=== PATIENT | female | born 1945 | race Caucasian/White ===

== ENCOUNTER → 2024-07-08 | Outpatient (CLI) | payer MEDICARE ==
[2024-07-08 12:05] LABS: Prothrombin Time 10.5 sec (10.0-12.5)
[2024-07-08 15:44] LABS: HCT 38.5 % (37.2-46.3); HGB 12.3 g/dL (12.0-15.0); MCH 29.9 pg (27.0-32.0); MCHC 31.9 g/dL (32.0-37.0); MCV 93.7 FL (80.0-97.0); Mean Platelet Volume 10.8 FL (9.5-12.2); NRBC Per 100 WBC 0 X 10*3/uL (0.00-0.01); Platelet Count 269 X 10*3/uL (140-440); RBC 4.11 X 10*6/uL (4.10-5.20); RDW 13.7 % (11.5-14.5); WBC 6.74 X 10*3/uL (4.50-10.00)
[2024-07-08 16:34] LABS: Blood Urea Nitrogen 29.5 mg/dL (9.0-27.0); Glucose 160 mg/dL (70-110)
[2024-07-08 16:35] LABS: ALT 24 U/L (8-44); AST 21 U/L (13-35); Albumin 4.3 g/dL (3.8-4.9); Albumin/Globulin Ratio 1.72 Ratio (1.60-3.17); Alkaline Phosphatase 61 U/L (41-126); Calcium 9.5 mg/dL (8.7-10.3); Chloride 105 mmol/L (96-109); Globulin 2.5 g/dL (1.6-3.3); Potassium 3.8 mmol/L (3.5-5.5); Sodium 139 mmol/L (135-145); Total Bilirubin 0.2 mg/dL (0.3-1.2); Total Protein 6.8 g/dL (6.2-8.2)
== END | disposition home or self-care (01) ==
LOC: LABPAT 11:07
PROVIDERS: ATTEND Orthopaedic Surgery Sports Medicine
DX: Z01.812 Encounter for preprocedural laboratory examination (principal); Z22.322 Carrier or suspected carrier of Methicillin resistant Staphylococcus aureus; M17.11 Unilateral primary osteoarthritis, right knee
CPT/HCPCS: 36415; 80053; 85027; 85610; 85730; 87070

== ENCOUNTER → 2024-08-31 | Outpatient (CLI) | payer MEDICARE ==
[2024-08-31 17:09] LABS: Prothrombin Time 10.6 sec (10.0-12.5)
[2024-08-31 18:24] LABS: HGB 11.7 g/dL (12.0-15.0); MCH 30.2 pg (27.0-32.0); MCHC 32.5 g/dL (32.0-37.0); MCV 92.8 FL (80.0-97.0); Mean Platelet Volume 10.3 FL (9.5-12.2); NRBC Per 100 WBC 0 X 10*3/uL (0.00-0.01); Platelet Count 247 X 10*3/uL (140-440); RBC 3.88 X 10*6/uL (4.10-5.20); RDW 13.4 % (11.5-14.5); WBC 7.16 X 10*3/uL (4.50-10.00)
[2024-08-31 19:17] LABS: ALT 17 U/L (8-44); AST 21 U/L (13-35); Albumin 4.2 g/dL (3.8-4.9); Alkaline Phosphatase 65 U/L (41-126); Blood Urea Nitrogen 18.9 mg/dL (9.0-27.0); Calcium 9.8 mg/dL (8.7-10.3); Carbon Dioxide 24.5 mmol/L (21.6-31.8); Chloride 102 mmol/L (96-109); Globulin 2.8 g/dL (1.6-3.3); Glucose 132 mg/dL (70-110); Potassium 3.8 mmol/L (3.5-5.5); Sodium 139 mmol/L (135-145); Total Bilirubin 0.3 mg/dL (0.3-1.2)
== END | disposition home or self-care (01) ==
LOC: LABPAT 15:35
PROVIDERS: ATTEND Orthopaedic Surgery Sports Medicine
CPT/HCPCS: 80053; 85027; 85610; 85730

== ENCOUNTER 2024-09-09 05:45 | Day surgery (SDC) | payer MEDICARE ==
[2024-07-22 15:44] VITALS: BMI 33.6
[~2024-09-09 05:45] MED LIST: ONDANSETRON 4 MG/2 ML VIAL IVP PRN; TRANEXAMIC 1,000 MG/100ML-NACL 1,000 MG in SALINE 1 100ML.BAG IVPB PRN
[2024-09-09] MEDS ORDERED: LIDOCAINE 1% (10MG/ML) FOR IV START INTRADERMA PRN (05:48)
[2024-09-09 06:45] LABS: Glucose,Whole Blood 146 mg/dL (70-110)
[2024-09-09] MEDS: LACTATED RINGERS 1,000 ML IV SCH ×2 (06:50→11:53)
[2024-09-09] MEDS: IV FLUID CONTINUATION 1,000 ML IV ONE (06:50)
[2024-09-09] MEDS: MIDAZOLAM 2 MG/2 ML VIAL IV ONE (06:59)
[2024-09-09] MEDS: ONDANSETRON 4 MG/2 ML VIAL IVP ONE (07:00)
[2024-09-09] MEDS: DEXAMETHASONE SOD PHOSPHATE 4 MG/ML 1 ML VIAL IV ONE (07:00)
[2024-09-09] MEDS: ACETAMINOPHEN TAB 500 MG TAB PO PRN (07:16)
--- NOTE | 2024-09-09 07:16 | P.ANPRN ---
Procedure Note - Anesthesia - Nerve Block Performed Right Adductor Canal Infusion Time Out Performed: Yes Date of Procedure: 09/09/24 Procedure Start Time: 06:58 Procedure Stop Time: 07:08 Location of Patient: PreOp Indication: Acute Post-Operative Pain, Requested by Surgeon Sedation Type: Sedate with meaningful contact maintained Preparation: Sterile Prep, Sterile Dressing Position: Supine Catheter: Indwelling Needle Types: On-Q Needle Gauge: 18 Ultrasound used to visualize needle placement: Yes Ultrasound used to observe medication spread: Yes Injectate: 0.5% Ropivacaine (see comment for volume) (20 ml + decadron 3 mg) Blood Aspirated: No Pain Paresthesia on Injection Noted: No Resistance on Injection: Normal Image Stored and Saved: Yes Events: Uneventful and Well Tolerated Right iPack Single Time Out Performed: Yes Date of Procedure: 09/09/24 Procedure Start Time: 07:10 Procedure Stop Time: 07:15 Location of Patient: PreOp Indication: Acute Post-Operative Pain, Requested by Surgeon Sedation Type: Sedate with meaningful contact maintained Preparation: Sterile Prep, Sterile Dressing Position: Supine Catheter: None Needle Types: Facet Needle Gauge: 20 Ultrasound used to visualize needle placement: Yes Ultrasound used to observe medication spread: Yes Injectate: 0.5% Ropivacaine (see comment for volume) (10 ml + decadron 1 mg) Blood Aspirated: No Pain Paresthesia on Injection Noted: No Resistance on Injection: Normal Image Stored and Saved: Yes Events: Uneventful and Well Tolerated
[2024-09-09] MEDS: GABAPENTIN 300 MG CAP PO PRN (07:17)
[2024-09-09] MEDS: MELOXICAM 7.5 MG TAB PO PRN (07:17)
[2024-09-09] MEDS: ceFAZolin 3,000 MG in SODIUM CHLORIDE 0.9% IRRIGATIO 3,000 ML IRRIGATION ONE (07:30)
[2024-09-09] MEDS ORDERED: ACETAMINOPHEN TAB 325 MG TAB PO PRN (09:38)
[2024-09-09] MEDS ORDERED: NA PHOS,M-B/NA PHOS,DI-BA 133 ML ENEMA RECTAL PRN (09:38)
[2024-09-09] MEDS ORDERED: bisacodyL 10 MG SUPP RECTAL PRN (09:38)
[2024-09-09] MEDS ORDERED: ONDANSETRON 4 MG/2 ML VIAL IVP PRN (09:38)
[2024-09-09] MEDS ORDERED: NALOXONE 0.4 MG/ML 1 ML VIAL IV PRN (09:38)
[2024-09-09] MEDS ORDERED: HYDROmorphone 0.5 MG/0.5 ML SYRINGE IVP PRN ×2 (09:38)
[2024-09-09] MEDS: ROPIVACAINE 1,100 MG, SODIUM CHLORIDE 0.9% 500 ML 330 ML, EMPTY PAIN BALL 1 EACH MISCELLANE PRN (09:48)
--- NOTE | 2024-09-09 10:44 | OP ---
OPERATIVE REPORT DATE OF SERVICE : 09/09/2024 MEDIA ANALYST: Sohail Vergara PA-C. PREOPERATIVE DIAGNOSIS: Right knee osteoarthrosis. POSTOPERATIVE DIAGNOSIS: Right knee osteoarthrosis. OPERATION: Right total knee arthroplasty. ANESTHESIA: Spinal sedation. ESTIMATED BLOOD LOSS: 100 mL. TOURNIQUET TIME: 56 minutes at 250 mmHg. COMPLICATIONS: None apparent. DRAINS: None. DISPOSITION: Postanesthesia care unit. INDICATIONS: Zara is a very pleasant 79-year-old female with long-standing history of right knee pain. History and physical examination are consistent with advanced right knee osteoarthrosis. She has been through significant operative management up to this point. Further treatment options were discussed, and she decided to go for the right total knee arthroplasty. The risks of procedure were discussed with her in detail. These risks include, but are not limited to risk of infection, nerve damage, bleeding, pain, and a small risk of deep vein thrombosis, which could lead to fatal pulmonary embolism. There is also a small risk of loosening of the implant, which could require revision operation. The patient understands these risks. All of her questions with regard to the risks of procedure were answered to her satisfaction. Appropriate informed consent was obtained. DESCRIPTION OF PROCEDURE: The patient was identified in the preoperative holding area. Surgical site was marked by both the patient and myself. She was given 2 g of Ancef IV for prophylactic purposes. She was then transported to the operative suite. She was placed supine on the operating table. A spinal anesthetic was then administered and dosed per the Anesthesia Department without apparent complication. Examination under anesthesia was then performed. The patient was 2 to 3 degrees shy of full extension. She had 100 degrees of flexion, and the medial collateral ligament, lateral collateral ligament, and posterior cruciate ligaments were stable. Tourniquet was then placed high on the right upper thigh, well-padded in preparation for surgery. The patient's right lower extremity was then prepped and draped in usual sterile fashion. Standard surgical pause was undertaken to ensure the wrapping, the correct site and the appropriate preoperative antibiotics were given. All staff in the room were in agreement, we proceeded. The outlines of the patella were marked with a surgical pen. A planned 12 cm vertical incision centered over the patella was marked with a surgical pen. The leg was then exsanguinated with an Esmarch dressing. The knee was then flexed, and tourniquet was inflated to 250 mmHg. Total tourniquet time for the procedure was 56 minutes. Incision was then made with a 10-blade scalpel. Dissection was carried down sharply overlying the fascia. Great care was taken to minimize the skin flaps. The knee was then exposed using a standard medial parapatellar approach. A small cuff of quadriceps tendon was then left for suturing. She was in a bit of varus preoperatively. A standard medial release was then made. Superficial medial collateral ligament was dissected off the bone around to the posterior aspect of the proximal tibia. The medial meniscus was then excised as well. The lateral meniscus was also released anteriorly. The leg was then externally rotated. The patella was everted. The knee was flexed. Retractors were then placed to protect the collateral ligaments. I then proceeded to remove the infrapatellar fat pad. This was excised sharply tangentially with fibers of the patellar tendon. I then proceeded to remove the peripheral osteophytes. This was done with a rongeur. I then proceeded with the distal femoral resection. She did have near full extension. A planned 9 mm resection was then done. The femoral canal was then entered in the midline of the femur, approximately 10 mm anterior to the origin of the posterior cruciate ligament. The lurdes was then advanced down the center of the femur and placed intramedullary. Based on the preoperative radiographs, the angle between the anatomic and mechanical axis of the femur was approximately 4 to 5 degrees. The valgus angle of the distal femoral cutting guide was then set at 4 degrees for the right knee. The distal femoral cutting guide was then advanced over the intramedullary lurdes. This was seated firmly against the femur. I then, as mentioned, planned to take 9 mm off the distal femur. The cutting block was then secured onto the femur with pins. The jig was then removed. The distal cut was made through the slot of the block. The pins were then removed. The distal femoral cutting block was removed. The accuracy of the distal femoral cuts was checked with 2 flat bars. I then proceeded with femoral sizing. The posterior referencing sizing guide was held firmly against the resected distal surface of the femur. The posterior condyles were resting on the posterior plane of the guide. The sizing guide was then placed onto the anterior femur. The size was measured as a size 9. I then assessed for femoral rotation. The plan was for 3 degrees of external rotation. Three degrees of external rotation was placed onto the jig. These holes were then marked. I then confirmed the rotation by 3 separate methods. This was done using epicondylar axis as well as Whitesides line and posterior referencing. It was deemed that the external rotation was proper. I then went forward with placing the femoral cutting block. This was placed over the previously placed pin holes. The Hugo wing was then placed on the anterior slots to ensure that we would not notch the anterior femur with the anterior femoral cut. I then proceeded with the anterior femoral cut. This was flushed with the anterior cortex of the femur. The posterior cuts were then made followed by the anterior chamfer cut, then the posterior chamfer cut. The cutting block was then removed. Throughout the resection, the collateral ligaments were protected with retractors. I then placed a trial size 6 femur. It was slightly wide, but the narrow fit very nicely, and it fit flush with the distal end of the femur. The drill holes were then made. I then proceeded with the tibial cut. I planned for cruciate-retaining knee. The guide was placed and set for varus, valgus, and for slope. The height was set for approximately 2 mm resection from the medial tibial plateau, which was the lower side. I was happy with the alignment and amount of resection. The cutting block was then pinned to the proximal tibia. The alignment lurdes was removed. The proximal tibia was resected with a reciprocating saw. Again, this was done with retractors, protecting the collateral ligaments as well as the posterior cruciate ligament. I then proceeded to evaluate the flexion and extension gaps. A 10 mm block was then placed. The flexion and extension gaps were equal. I then proceeded with resection of the posterior osteophytes. She had fairly minimal posterior osteophytes. This was done using a curved osteotome. This resected the posterior osteophytes, and posterior capsular stripping was done off the posterior aspect of the femur at this time. The osteophytes were then removed. I then proceeded with resection of the patella. The thickness of the patella measured using the caliper. The thickness was 22 mm. The thickness of the anticipated patellar dome was taken into account. The resection was then performed and confirmed to be equal in 4 quadrants using a caliper. Approximately 14 mm of bone remained after resection. A 29 x 8 mm standard patellar trial was then placed. The holes were drilled and the trial was then placed. I then proceeded with sizing tibial plate. A size D tibial plate fit very nicely. I then placed the trial femur, the tibial tray, and the patellar button. A 10 mm trial tibial insert was also placed. The components fit very nicely. She had full extension and flexion. The extension and flexion gaps were equal and stable to both varus and valgus stress. The patella tracked appropriately. The tibial tray rotation was then marked with a Bovie. This was externally rotated properly. I then proceeded with the tibial preparation. I first drilled the femoral holes and removed the femoral component. The tibial tray was then set for proper external rotation as well as medial lateral placement onto the tibia. It was then pinned into place. I then proceeded with punching the keel. I then decided to proceed with cementing of all our components. The knee was thoroughly irrigated with sterile saline solution via pulse lavage. The lateral genicular artery was identified and cauterized. All blood was removed from the bone of the tibia, femur, and patella with pulse lavage. I then proceeded with cementing. Two packs of antibiotic bone cement were prepared on the back table by certified surgical technologist. I then proceeded with cementing the tibia first. The cement was impacted in the keel as well as deeply seated into the bone. A second coat cement was then placed. The tibia was then impacted into place. Excess cement was removed with Loren's and Jokers. I then proceeded with cementing of the femoral component. The femoral component was also cemented using standard technique. Excess cement was removed. A 10 mm trial insert was then placed into the knee. It was brought into full extension with a constant axial load placed until the cement had hardened. The patellar component also was then cemented. This was held firmly with a compressive device until the cement had dried. When the cement had dried, the knee was taken out of extension. All excess cement was removed from around the prosthesis. I then trialed the knee with a 10 mm insert. Flexion and extension gaps were appropriate. The knee was stable. It came into full extension. I decided to go forward with a 10 mm medial congruent cross-linked cruciate- retaining tibial insert. Polyethylene was then placed onto the tibial tray and locked into place. The knee was then reduced. The knee was again further irrigated with sterile saline solution with antibiotic added. The tourniquet was then deflated. Total tourniquet time for the procedure was 56 minutes at 250 mmHg. Final components were Hu Person[employer] size 6 narrow cruciate-retaining femoral component, size D tibial tray, a 10 mm medial congruent cruciate-retaining polyethylene insert, and a 29 x 8 mm patella. I then proceeded with closure. Again, the knee was thoroughly irrigated. The quadriceps tendon and the medial retinaculum were reapproximated with #2 Ethibond suture. The extensor mechanism was then closed with a running #2 Quill suture. Subcutaneous tissues were closed with 2-0 Vicryl interrupted suture. The skin was closed with a running 3-0 Quill suture. Dermabond was applied to the incision. Sterile compressive dressings were applied. All sponge and needle counts deemed correct prior to closure. The patient tolerated the procedure without apparent complication. She was transferred to recovery room in stable condition. MMODL / IJN: [id number] /
[2024-09-09] MEDS: HYDROmorphone 0.5 MG/0.5 ML SYRINGE IVP PRN ×2 (11:00→23:54)
--- NOTE | 2024-09-09 11:05 | XR ---
EXAMINATION TYPE: XR knee limited RT DATE OF EXAM: 09/09/2024 10:28 AM COMPARISON: None. CLINICAL INDICATION: Female, 79 years old with history of Evaluation for Postop abnormality and align ment, TECHNIQUE: XR knee limited RT view(s) obtained. FINDINGS: No acute fractures are evident. Tibial and femoral components of the place. Postsurgical soft tissue changes are evident. No significant joint effusion is evident. IMPRESSION: 1. No acute fracture post left knee prosthesis placement [facility], , 09/09/2024 11:03 AM
[2024-09-09 12:04] LABS: Glucose,Whole Blood 149 mg/dL (70-110)
[2024-09-09] MEDS: HYDROcodone/APAP 7.5-325MG 1 EACH TAB PO PRN ×2 (12:57→21:16)
[2024-09-09 16:19] LABS: Glucose,Whole Blood 276 mg/dL (70-110)
[2024-09-09 21:03] LABS: Glucose,Whole Blood 205 mg/dL (70-110)
[2024-09-09] MEDS: SENNOSIDES-DOCUSATE SODIUM 1 EACH TAB PO SCH (21:15)
[2024-09-09] MEDS: ASPIRIN 81 MG PO SCH (21:16)
[2024-09-09] MEDS ORDERED: DEXTROSE 50% SYRINGE 50 ML IVP PRN ×2 (21:36)
--- NOTE | 2024-09-09 21:42 | P.CONS ---
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 Postoperatively blood pressure is elevated SBP in 170s. Blood sugar is also elevated to 76. Patient currently otherwise denies any complaints of headache. No dizziness or lightheadedness. No chest pain or shortness of breath. No cough or sputum production. Laboratory data is not available at this time. Review of Systems Constitutional: Patient denies any fever or chills . No generalized weakness or weight loss. Abdomen: Patient denied nausea vomiting and diarrhea and abdominal pain. Cardiovascular: Patient denies any chest pain or short of breath no palpitations. Respiratory: patient denied any cough or sputum production. No shortness of breath Neurologic: Patient denied any numbness or tingling. no headache. Musculoskeletal: Patient denies any complaints of joint swelling or deformity. Skin: Negative Psychiatric: Negative Endocrine: No heat or cold intolerance. No recent weight gain. Genitourinary: No dysuria or hematuria. All other 14 point ROS negative except the above Past Medical History Past Medical History: CVA/TIA, Diabetes Mellitus, GERD/Reflux, Hyperlipidemia, Hypertension, Osteoarthritis (OA), Thyroid Disorder Additional Past Medical History / Comment(s): CVA at age 52-no residual,uses bactrim as uti preventative-bladder doesn't always completely empty,uti's, History of Any Multi-Drug Resistant Organisms: None Reported Past Surgical History: Bladder Surgery, Hysterectomy Additional Past Surgical History / Comment(s): bladder x2,varicose vein stripping, TRK Past Anesthesia/Blood Transfusion Reactions: No Reported Reaction Additional Past Anesthesia/Blood Transfusion Reaction / Comm: no problems with prior blood transfusions Past Psychological History: No Psychological Hx Reported Smoking Status: Never smoker Past Alcohol Use History: None Reported Past Drug Use History: None Reported - Past Family History Mother Family Medical History: No Reported History Medications and Allergies Home Medications Medication Instructions Recorded Confirmed Type Aspirin 325 mg PO DAILY 07/22/24 09/03/24 History Levothyroxine Sodium [Synthroid] 50 mcg PO QAM 07/22/24 09/03/24 History Losartan Potassium [Cozaar] 100 mg PO QAM 07/22/24 09/03/24 History Multivitamins, Thera [Multivitamin 1 tab PO DAILY 07/22/24 07/22/24 History (formulary)] Potassium Chloride 10 meq PO HS 07/22/24 09/03/24 History Pravastatin Sodium [Pravachol] 40 mg PO HS 07/22/24 09/03/24 History Sulfamethox-Tmp 400-80Mg [Bactrim 1 tab PO HS 07/22/24 09/03/24 History SS 400-80 mg] Ubidecarenone [Co Q-10] 30 mg PO DAILY 07/22/24 09/03/24 History amLODIPine [Norvasc] 5 mg PO QAM 07/22/24 09/03/24 History hydroCHLOROthiazide 12.5 mg PO QAM 07/22/24 09/03/24 History metFORMIN HCL [Glucophage] 500 mg PO W/SUPPER 07/22/24 09/09/24 History Acetaminophen [Tylenol] 325 - 650 mg PO Q6H PRN 09/03/24 09/03/24 History Allergies Allergy/AdvReac Type Severity Reaction Status Date / Time Penicillins Allergy Rash/Hives Verified 09/03/24 13:02 Physical Exam Vitals: Vital Signs Temp Pulse Pulse Resp BP Pulse Ox 09/09/24 20:39 77 16 09/09/24 20:00 97.5 F L 77 16 166/91 09/09/24 19:15 97.5 F L 77 16 166/91 95 09/09/24 12:40 84 152/94 91 L 09/09/24 12:25 93 140/85 93 L 09/09/24 12:10 83 146/80 93 L 09/09/24 11:55 96.9 F L 82 16 160/88 92 L 09/09/24 11:38 166/86 09/09/24 11:30 75 16 170/89 99 09/09/24 11:15 73 16 172/86 99 09/09/24 11:00 86 16 178/86 99 09/09/24 10:45 80 16 160/88 99 09/09/24 10:30 76 16 154/84 99 09/09/24 10:15 74 16 144/78 99 09/09/24 10:00 73 16 160/82 99 09/09/24 09:45 73 14 146/79 95 09/09/24 09:33 97.3 F L 77 14 155/77 95 09/09/24 07:20 83 18 169/86 98 09/09/24 06:42 97.6 F 89 20 194/98 98 Intake and Output 09/09/24 09/09/24 09/09/24 06:59 14:59 22:59 Intake Total 200 551 Output Total 100 Balance 200 451 Intake: IV 200 551 Output: Estimated Blood Loss 100 Other: Voiding Method Toilet # Voids 1 Weight 87.1 kg 87.1 kg PHYSICAL EXAMINATION: Patient is lying in the bed comfortably, no acute distress, awake alert and oriented.. HEENT: Normocephalic. Neck is supple. Pupils reactive. Nostrils clear. Oral cavity is moist. Neck reveals no JVD, carotid bruits, or thyromegaly. CHEST EXAMINATION: Trachea is central. Symmetrical expansion. Lung ordaz clear to auscultation and percussion. CARDIAC: Normal S1, S2 with no gallops. No murmurs ABDOMEN: Soft. Bowel sounds normal. No organomegaly. No abdominal bruits. Extremities: reveal no edema. No clubbing or cyanosis Neurologically awake, alert, oriented x3 with well-coordinated movements. No focal deficits noted Skin: No rash or skin lesions. Psychiatric: Coperative. Nonsuicidal Musculoskeletal: No joint swelling or deformity. Right lower extremity surgical site is bandaged. Minimal swelling noted.. Results Labs: Abnormal Lab Results - Last 24 Hours (Table) 09/09/24 09/09/24 09/09/24 Range/Units 06:39 12:03 16:17 POC Glucose (mg/dL) 146 H 149 H 276 H (70-110) mg/dL 09/09/24 Range/Units 21:02 POC Glucose (mg/dL) 205 H (70-110) mg/dL Assessment and Plan Assessment: Status post right total knee arthroplasty postoperative day 0 Hypertension uncontrolled. Started back on home regimen. Hyperglycemia is uncontrolled diabetes type 2 [id number]. Osteoarthritis Hypothyroidism GERD History of CVA/TIA with no residual weakness History of bladder surgery and recurrent UTIs on Bactrim prophylaxis GI and DVT prophylaxis as per primary team Plan: Patient will be started back on home blood pressure medications including Norvasc and losartan. Continue to titrate doses. Patient is also on hydrochlorothiazide at home. Sliding scale and metformin is on hold while in the hospital.. Continue current management and encourage incentive spirometry. Follow-up CBC and BMP tomorrow. Further recommendations based on clinical course. Thank you kindly for your consult. Time with Patient: Greater than 30
[2024-09-09] MEDS: INSULIN ASPART (NovoLOG) 100 UNIT/ML VIAL SQ SCH (22:18)
[2024-09-09] MEDS: PRAVASTATIN SODIUM 40 MG TAB PO SCH (22:18)
[2024-09-10] MEDS: LEVOTHYROXINE 50 MCG TAB PO SCH (06:26)
[2024-09-10 07:03] LABS: Glucose,Whole Blood 141 mg/dL (70-110)
[2024-09-10] MEDS ORDERED: INSULIN ASPART (NovoLOG) 100 UNIT/ML VIAL SQ SCH (07:30)
[2024-09-10 07:56] VITALS: BP 158/86; PULSE 76; RESP 18; TEMP 97.5
[2024-09-10] MEDS: amLODIPine 5 MG TAB PO SCH (08:04)
[2024-09-10] MEDS: MULTIVITAMINS, THERA 1 EACH TAB PO SCH (08:04)
[2024-09-10] MEDS: LOSARTAN 50 MG TAB PO SCH (08:04)
[2024-09-10] MEDS: MAGNESIUM HYDROXIDE 2,400 MG/30 ML CUP PO PRN (09:29)
[2024-09-10 09:31] LABS: BUN/Creat Ratio 20.29 Ratio (12.00-20.00); Blood Urea Nitrogen 14.2 mg/dL (9.0-27.0); Glucose 200 mg/dL (70-110)
[2024-09-10 09:32] LABS: Calcium 9.3 mg/dL (8.7-10.3); Carbon Dioxide 23.3 mmol/L (21.6-31.8); Chloride 104 mmol/L (96-109); Potassium 3.8 mmol/L (3.5-5.5); Sodium 138 mmol/L (135-145)
[2024-09-10 09:38] LABS: Basophils # (A) 0.02 X 10*3/uL (0.00-0.10); Basophils % (A) 0.2 %; Eosinophils # (A) 0 X 10*3/uL (0.04-0.35); Eosinophils % (A) 0 %; HCT 31.5 % (37.2-46.3); HGB 10.1 g/dL (12.0-15.0); Lymphocytes % (A) 14.3 %; MCH 29.6 pg (27.0-32.0); MCHC 32.1 g/dL (32.0-37.0); MCV 92.4 FL (80.0-97.0); Mean Platelet Volume 10.1 FL (9.5-12.2); Monocytes # (A) 0.86 X 10*3/uL (0.20-1.00); Monocytes % (A) 8.2 %; NRBC Per 100 WBC 0 X 10*3/uL (0.00-0.01); Neutrophils # (A) 8.03 X 10*3/uL (1.80-7.70); Neutrophils % (A) 76.7 %; Platelet Count 256 X 10*3/uL (140-440); RBC 3.41 X 10*6/uL (4.10-5.20); RDW 13.1 % (11.5-14.5); WBC 10.47 X 10*3/uL (4.50-10.00)
--- NOTE | 2024-09-10 11:22 | P.PN ---
Progress Note - Text 09/10/24 623am 79-year-old female status post total knee replacement. Patient has an On-Q pump for postop pain control with a solution running at 8 cc an hour with a VAS of 3. Dressing clean dry and intact. Plan to continue On-Q pump infusion
[2024-09-10 11:31] LABS: Glucose,Whole Blood 123 mg/dL (70-110)
[2024-09-10] MEDS: traMADol 50 MG TAB PO PRN (13:17)
--- NOTE | 2024-09-10 13:21 | P.DS ---
Providers Expected date of discharge: 09/10/24 Attending physician: Joes Lugo Consults: 09/09/24 09:38 Consult Physician Routine Consulting Provider: Evelin Andre Consult Reason/Comments: post op medical management Do you want consulting provider notified?: Yes Primary care physician: Stated None - Discharge Diagnosis(es) (1) Right knee DJD Patient was admitted to the OR on 09/09/24 to undergo a right total knee arthroplasty. She had failed conservative measures as an outpatient and desired to proceed with elective surgery after given informed consent. She underwent the above procedure which she tolerated well without complication. Postoperative hospital course has remained without complication. On day of discharge she is afebrile, vital signs stable, labs within acceptable ranges, tolerating by mouth meds and diet, voiding without difficulty, positive flatus, denies abdominal pain or calf pain, pain is controlled on oral pain medication and has no new complaints. Wound is benign, neurovascular status is intact, calf is soft and nontender, abdomen soft and nontender. Review of systems is negative for numbness, tingling, fever, chills, chest pain, shortness of breath, nausea, vomiting, dizziness, headaches, slurred speech or other. Current Visit: Yes Status: Acute Priority: Medium Procedures: Right TKA Patient Condition at Discharge: Good Plan - Discharge Summary Discharge Rx Participant: Yes New Discharge Prescriptions: New Aspirin [Adult Low Dose Aspirin EC] 81 mg PO BID #60 tab HYDROcodone/APAP 7.5-325MG [[employer] 7.5-325] 1 - 2 each PO Q4-6H PRN #32 tab PRN Reason: Pain Ondansetron [Zofran] 4 mg PO Q8HR PRN #21 tab PRN Reason: Nausea Docusate [Colace] 100 mg PO BID #60 capsule Continue Pravastatin Sodium [Pravachol] 40 mg PO HS amLODIPine [Norvasc] 5 mg PO QAM Losartan Potassium [Cozaar] 100 mg PO QAM metFORMIN HCL [Glucophage] 500 mg PO W/SUPPER Sulfamethox-Tmp 400-80Mg [Bactrim SS 400-80 mg] 1 tab PO HS Potassium Chloride 10 meq PO HS hydroCHLOROthiazide 12.5 mg PO QAM Levothyroxine Sodium [Synthroid] 50 mcg PO QAM Ubidecarenone [Co Q-10] 30 mg PO DAILY Multivitamins, Thera [Multivitamin (formulary)] 1 tab PO DAILY Acetaminophen [Tylenol] 325 - 650 mg PO Q6H PRN PRN Reason: Pain No Action Aspirin 325 mg PO DAILY Discharge Medication List Aspirin 325 mg PO DAILY 07/22/24 [History] Levothyroxine Sodium [Synthroid] 50 mcg PO QAM 07/22/24 [History] Losartan Potassium [Cozaar] 100 mg PO QAM 07/22/24 [History] Multivitamins, Thera [Multivitamin (formulary)] 1 tab PO DAILY 07/22/24 [History] Potassium Chloride 10 meq PO HS 07/22/24 [History] Pravastatin Sodium [Pravachol] 40 mg PO HS 07/22/24 [History] Sulfamethox-Tmp 400-80Mg [Bactrim SS 400-80 mg] 1 tab PO HS 07/22/24 [History] Ubidecarenone [Co Q-10] 30 mg PO DAILY 07/22/24 [History] amLODIPine [Norvasc] 5 mg PO QAM 07/22/24 [History] hydroCHLOROthiazide 12.5 mg PO QAM 07/22/24 [History] metFORMIN HCL [Glucophage] 500 mg PO W/SUPPER 07/22/24 [History] Acetaminophen [Tylenol] 325 - 650 mg PO Q6H PRN 09/03/24 [History] Aspirin [Adult Low Dose Aspirin EC] 81 mg PO BID #60 tab 09/10/24 [Rx] Docusate [Colace] 100 mg PO BID #60 capsule 09/10/24 [Rx] HYDROcodone/APAP 7.5-325MG [[employer] 7.5-325] 1 - 2 each PO Q4-6H PRN #32 tab 09/10/24 [Rx] Ondansetron [Zofran] 4 mg PO Q8HR PRN #21 tab 09/10/24 [Rx] Follow up Appointment(s)/Referral(s): [facility] [NON-STAFF] - As Needed Jose Lugo MD [STAFF PHYSICIAN] - 10 Days Activity/Diet/Wound Care/Special Instructions: Weight bear as tolerated May shower after 3 days if no bleeding Keep wound clean and dry Take meds as directed F/U with Dr. Lugo in office Discharge Disposition: HOME WITH HOME HEALTH SERVICES
== END 2024-09-10 14:39 | disposition home health service (06) ==
LOC: OR 05:45 → 4SSUR 11:26 → OR 09-10 14:39
PROVIDERS: ATTEND Orthopaedic Surgery Sports Medicine
DX: M17.11 Unilateral primary osteoarthritis, right knee (principal); E03.9 Hypothyroidism, unspecified; E11.9 Type 2 diabetes mellitus without complications; E78.5 Hyperlipidemia, unspecified; G89.18 Other acute postprocedural pain; I10 Essential (primary) hypertension; K21.9 Gastro-esophageal reflux disease without esophagitis; Z79.82 Long term (current) use of aspirin; Z79.84 Long term (current) use of oral hypoglycemic drugs; Z79.890 Hormone replacement therapy; Z86.73 Personal history of transient ischemic attack (TIA), and cerebral infarction without residual deficits; Z88.0 Allergy status to penicillin; Z90.710 Acquired absence of both cervix and uterus
CPT/HCPCS: 73560; 27447; 64999; J2250; J1100; J0690 ×2; J2405; J2795; J1171; 64448; 80048; 83036; 85025